=== PATIENT | male | born 1985 | race Caucasian/White ===

== ENCOUNTER → 2020-07-01 11:39 | Outpatient (BNVA) | payer OTHER, SELFPAY | PROVIDERS: Visit Provider Physician Assistant Medical | DX: S33.9XXA Sprain of unspecified parts of lumbar spine and pelvis, initial encounter (principal); X50.0XXA Overexertion from strenuous movement or load, initial encounter | CPT/HCPCS: 99203 ==

== ENCOUNTER → 2020-07-07 08:39 | Outpatient (BNVA) | payer OTHER, SELFPAY | PROVIDERS: Visit Provider Physician Assistant Medical | DX: S33.9XXA Sprain of unspecified parts of lumbar spine and pelvis, initial encounter (principal); X58.XXXA Exposure to other specified factors, initial encounter | CPT/HCPCS: 99213 ==

== ENCOUNTER → 2020-07-17 09:10 | Outpatient (BNVA) | payer OTHER, SELFPAY | PROVIDERS: Visit Provider Physician Assistant Medical | DX: S39.012A Strain of muscle, fascia and tendon of lower back, initial encounter (principal); X58.XXXA Exposure to other specified factors, initial encounter | CPT/HCPCS: 72110; 99214 ==

== ENCOUNTER → 2020-07-28 07:57 | Outpatient (BNVA) | payer OTHER, SELFPAY | PROVIDERS: Visit Provider Physician Assistant Medical | DX: S33.9XXD Sprain of unspecified parts of lumbar spine and pelvis, subsequent encounter (principal); X58.XXXD Exposure to other specified factors, subsequent encounter | CPT/HCPCS: 99213 ==

== ENCOUNTER → 2020-08-11 09:16 | Outpatient (BNVA) | payer OTHER, SELFPAY | PROVIDERS: Visit Provider Physician Assistant Medical | DX: S33.9XXD Sprain of unspecified parts of lumbar spine and pelvis, subsequent encounter (principal); X58.XXXD Exposure to other specified factors, subsequent encounter | CPT/HCPCS: 99213 ==

== ENCOUNTER 2020-08-13 10:00 | Outpatient (RCR) | payer OTHER, SELFPAY ==
--- NOTE | 2020-07-14 10:26 | MHC.PT.EP ---
[facility] [place] Office [place] Office [place] Office [address] Ronaldo Torres [address] [phone] F: [phone] F: [phone] F: [phone] F: [phone] Physical Therapy Plan of Care Date of Evaluation: Date of Surgery: Diagnosis: ACUTE LUMBOSACRAL SPRAIN (KP) Assessment: ALENA IS A PLEASANT 35 YO GENTLEMAN WITH NEW ONSET OF LOW BACK PAIN FOLLOWING LIFTING INJURY AT WORK. UPON EXAM HE DEMONSTRATES S/S CONSISTENT WITH LUMBAR STRAIN. IMPAIRMENTS INCLUDE DECREASED LUMBAR AND LE ROM, DECREASED STRENGTH OF HIP ABDUCTORS, ALTERED POSTURE AND POSITIONING, ALTERED GAIT PATTERN, DECREASED SOFT TISSUE MOBILITY AND INCREASED PAIN. FUNCTIONAL LIMITATIONS INCLUDE DECREASED ABILITY TO PERFORM LIFTING, REACHING, PUSHING AND PULLING. DECREASED ABILTY TO SQUAT, AMBULATE GREATER THAN 15 MINS, DECREASED ABILITY TO PERFORM HIGHER DEMAND HOMEMAKING AND WORK TASKS, DECREASED PARTICIPATION IN FITNESS AND COMMUNITY ACTIVITIES. Frequency and Duration: The patient will be seen 2X WEEK FOR 4 WEEKS Short Term Goals: INITIATE HEP AND PROMOTE SELF MANAGEMENT OF SYMPTOMS IN 2 VISITS. Correction Goals: IN 4 WEEKS FULL, PAIN FREE LUMBAR ROM TO PERFORM FULL FUNCTIONAL SQUAT WITH CORRECT MECHANICS AND NO VERBAL CUING TO PERFORM 3:3 LIFTING TASKS WITHOUT CUING AND PAIN NO GREATER THAN 2/10 INDEPENDENT HEP AND SELF MANAGEMENT OF ANY RESIDUAL SYMPTOMS Treatment Plan: Modalities to reduce pain, spasms and effusion. Manual therapy to restore motion and function. Therapeutic exercise to improve strength and flexibility. Neuromuscular re-education for posture and balance. Therapeutic activities to return to functional activities of daily living. Electronically signed by: PARESH MONROE PT, DPT Please sign and return to therapist. Thank you for your referral.
--- NOTE | 2020-10-01 09:36 | MHC.PT.DC ---
[facility] [place] Office [place] Office [place] Office [address] Ronaldo Torres [address] [phone] F: [phone] F: [phone] F: [phone] F: [phone] Physical Therapy Discharge Report Diagnosis: ACUTE LUMBOSACRAL SPRAIN (KP) Date of Surgery: Date of Evaluation: 07/14/20 Date of Discharge: 08/30/20 Treatments to Date: 8 Cancellations to Date: 0 No Shows to Date: 0 Discharge Status: Achieved Goals Improved Function Independent with HEP Discharge Summary: At last attended visit, note states Today gilberto demonstrates full ROM and strength of lowback and reports significant improvement in symptoms. He is gradually increasing weight at work and is confident with HEP. We will place him on hold until MD follow up 08/28 and anticipate DC at that time . Gilberto informed us he is ready for DC and independent with HEP and self management of any residual symptoms. Electronically signed by: Nilam Tran PT, DPT Please sign and return to therapist. Thank you for your referral.
== END 2020-10-01 09:37 | disposition home or self-care (01) ==
LOC: HO.PT 10:00
PROVIDERS: Visit Provider Physician Assistant Medical
DX: S39.012D Strain of muscle, fascia and tendon of lower back, subsequent encounter (principal)
CPT/HCPCS: 97014; 97110; 97140; 97161; 97530; 97535

== ENCOUNTER → 2020-08-28 07:51 | Outpatient (BNVA) | payer OTHER, SELFPAY | PROVIDERS: Visit Provider Physician Assistant Medical | DX: S33.9XXD Sprain of unspecified parts of lumbar spine and pelvis, subsequent encounter (principal); X58.XXXD Exposure to other specified factors, subsequent encounter | CPT/HCPCS: 99213 ==